=== PATIENT | female | born 1945 | race Caucasian/White ===

== ENCOUNTER 2018-01-16 20:02 | Inpatient (IN) | payer MEDICARE, OTHER ==
[~2018-01-16] VITALS: Ht 152.4 cm; Wt 35.4 kg
--- NOTE | 2018-01-16 21:30 | NUR ---
Received patient from [facility]. Patient in stable condition upon admission. No signs of pain, sob, or acute distress noted. patient is A/Ox4, Tamazight speaking, able to make needs known. Admit Dx of debility. patient was admitted to [facility] due to PNA & CHF exacerbation. Was found to have a DVT in right upper arm during hospital stay. Per day shift nurse no BP taken from RUE. Vital signs WNL upon admission. On 2L o2 via NC. Pertinent assessment completed. Patient is compliant & cooperative & is able to make her needs known even though she is unable to speak Romansh. Family at bedside during admission. per family the pt is extremely independent & cooperative. MD aware of patient admission. Med recon completed. Bed placed in low position x2 side rails up. Call light within reach. Will continue to monitor through shift.
[2018-01-16] MEDS ORDERED: LEVO25TA9 PO (22:10)
[2018-01-16] MEDS ORDERED: CARV3.122 PO (22:10)
[2018-01-16] MEDS ORDERED: TIOT18CA3 IH (22:10)
[2018-01-16] MEDS ORDERED: ASPI81TA31 PO (22:10)
[2018-01-16] MEDS ORDERED: ALBU8.5H8 IH (22:38)
[2018-01-16] MEDS ORDERED: Z GUARD REMEDY PASTE 57 GM TUBE TOP PRN (22:45)
[2018-01-16] MEDS ORDERED: ALBUTEROL SULFATE 8 GM HFA.AER.AD IH PRN (23:15)
[2018-01-17 01:02] VITALS: BP 107/65
--- NOTE | 2018-01-17 05:58 | NUR ---
Patient slept intermittently through the shift. No acute distress noted. compliant and able to make needs known. Vital signs within range. All needs attended to. patient was able to ambulate to restroom with standby assist. Safety measures implemented. Bed kept in low position, locked, alarm on at all times. Call light within reach. Will endorse to day shift RN.
[2018-01-17] MEDS ORDERED: ALBUTEROL SULFATE 2.5 MG/3 ML NEBU NEB PRN (07:15)
[2018-01-17 08:00] VITALS: BP 102/52
--- NOTE | 2018-01-17 08:30 | NUR ---
Patient noted resting in bed, no signs of distress, no complaints of pain, call light in reach, bed locked and in lowest position, x 2 bed rails, all needs met at this time
[2018-01-17] MEDS: LEVOTHYROXINE SODIUM 25 MCG TABLET PO SCH (08:59)
[2018-01-17] MEDS: CARVEDILOL 3.125 MG TABLET PO SCH ×2 (08:59→17:00)
[2018-01-17] MEDS: ASPIRIN 81 MG TAB.CHEW PO SCH (08:59)
[2018-01-17 10:44] LABS: BASOPHILS # (AUTO) 0.1 K/uL (0.0-8.0); BASOPHILS % (AUTO) 1.2 % (0.0-2.0); EOSINOPHILS # (AUTO) 0.2 K/uL (0.0-0.7); EOSINOPHILS % (AUTO) 2.1 % (0.0-7.0); HEMOGLOBIN 9.5 g/dL (10.9-14.3); LYMPHOCYTES # (AUTO) 1.8 K/uL (20.0-40.0); LYMPHOCYTES % (AUTO) 18.2 % (20.5-51.5); MEAN CORPUSCULAR HEMOGLOBIN 32.9 uug (24.7-32.8); MEAN CORPUSCULAR HGB CONC 34 g/dL (32.3-35.6); MEAN CORPUSCULAR VOLUME 96.9 fL (75.5-95.3); MONOCYTES # (AUTO) 0.7 K/uL (2.0-10.0); MONOCYTES % (AUTO) 6.9 % (0.0-11.0); NEUTROPHILS % (AUTO) 71.6 % (38.5-71.5); PLATELET COUNT (AUTO) 452 K/uL (179-408); RED BLOOD CELL COUNT(AUTO) 2.89 MIL/uL (3.63-4.92); WHITE BLOOD COUNT (AUTO) 9.8 K/uL (3.8-11.8)
[2018-01-17 10:51] LABS: CREATININE 0.9 mg/dL (0.6-1.3); POTASSIUM 3.5 mmol/L (3.5-5.1)
[2018-01-17 11:03] LABS: BILIRUBIN,TOTAL 0.4 mg/dL (0.2-1.0); MAGNESIUM 1.8 mg/dL (1.8-2.4); PHOSPHOROUS 3.4 mg/dL (2.5-4.9); TOTAL PROTEIN, SERUM 7.5 g/dL (6.4-8.2)
[2018-01-17 11:04] LABS: THYROID STIMULATING HORMONE 3.746 mIU/mL (0.358-3.740)
--- NOTE | 2018-01-17 11:38 | NUR ---
patient complaints of chest pain 103/47, 90 pulse, MD Jamison notified of findings and placed orders for stat 1) EKG 2)chest X-ray 3) B-Types Natriuretic peptide, CBC, comprehensive metabolic panel, lipid panel, magnesium, phosphate, thyroid stimulating, troponin, vit D 25-Hydroxy, B12
--- NOTE | 2018-01-17 11:45 | NUR ---
EKG results as follows 1) Normal Sinus Rhythm 2) nonspecific T wave abnormality 3)abnormal ECG
--- NOTE | 2018-01-17 19:30 | NUR ---
Received patient from day shift nurse. patient currently lying in bed comfortably. A/O x4, Lao speaking, but able to make needs known. No signs of sob or acute distress. Pertinent assessment completed. On 2L o2 via NC. HOB elevated. Bed in low position x2 side rails up. Encouraged patient to use the call light when needing to use the restroom for safety, since she is able to ambulate independently. Vital signs within range at start of shift. Per day shift nurse patient had chest pain this AM. NNO from MD. Patient states she has a little pain when breathing. MD aware. NNO. Call light within reach. Will continue to monitor through shift.
[2018-01-17 20:26] VITALS: BP 108/69
[2018-01-17] MEDS ORDERED: ACETAMINOPHEN 650 MG/20.3 ML LIQUID UDC PO PRN (23:30)
[2018-01-18] MEDS: TRAMADOL HCL 50 MG TABLET PO PRN ×2 (00:22→22:06)
--- NOTE | 2018-01-18 06:02 | NUR ---
Patient slept intermittently through shift. No acute distress noted. All needs attended to. Complained of left chest/rib pain. Medications administered per MD order. Was able to sleep after pain med given. Patient compliant and cooperative. Able to ambulate to restroom with standby assist. safety measures implemented. Bed placed in low position, locked. Call light within reach. Will endorse to day shift nurse.
[2018-01-18 08:00] VITALS: BP 97/46
[2018-01-18] MEDS: ASPIRIN 81 MG TAB.CHEW PO SCH (08:49)
[2018-01-18] MEDS: LEVOTHYROXINE SODIUM 25 MCG TABLET PO SCH (08:50)
[2018-01-18] MEDS: CARVEDILOL 3.125 MG TABLET PO SCH ×2 (08:50→17:00)
--- NOTE | 2018-01-18 11:24 | NUR ---
CALLED BARRIE, TO LET HER KNOW, WE HAVE A VSE. I CALLED DR OJEDA, HE WILL BE HERE AT 1500 TO DO IT. BARRIE SAID SHE WILL GET IN TOUCH WITH MINERVA, HEAD OF HER DEPT. TO LET HER KNOW IF SHE CAN'T SOMEONE ELSE CAN'T DO IT, SHE WOULD BE HAPPY TO DO IT. VSE SCHEDULE TO BE DONE AT 1500 TODAY.
--- NOTE | 2018-01-18 11:25 | NUR ---
Patient noted sitting up in bed, denies pain at this time, no signs of distress noted, call light in reach, bed locked and in lowest position, x 2 bed rails, bed alarm in place, all needs met at this time
--- NOTE | 2018-01-18 11:28 | NUR ---
I'M SORRY, I MEANT IF SHE WILL BE HAPPY TO DO VSE, IF NO ONE ELSE CAN.
--- NOTE | 2018-01-18 13:33 | NUR ---
INTERDISCIPLINARY TEAM CONFERENCE
[2018-01-18 19:30] VITALS: BP 110/63
--- NOTE | 2018-01-18 19:30 | NUR ---
Received patient from day shift nurse. Patient is currently lying in bed comfortably with no signs of pain, sob, or acute distress. Family currently at bedside. Pertinent assessment completed. Vital signs WNL. Bed in low position x2 side rails up. Patient is independent and able to ambulate on her own. Encouraged patient to use call light when needing to use restroom for safety. Will continue to monitor through shift.
--- NOTE | 2018-01-19 05:59 | NUR ---
No acute distress noted during shift. Patient was able to sleep after pain med. Assisted patient to restroom. Encouraged patient to use call light. Safety measures implemented. Bed kept in low position, locked, x2 side rails up. Will endorse to day shift RN.
[2018-01-19 07:30] VITALS: BP 103/55
--- NOTE | 2018-01-19 07:58 | NUR ---
Patient noted ambulating with OT to the gym, no complaints of pain at this time, no signs of distress, call light in reach, bed locked and in lowest position, x 2 bed rails, bed alarm in place
[2018-01-19] MEDS: LEVOTHYROXINE SODIUM 25 MCG TABLET PO SCH (08:51)
[2018-01-19] MEDS: ASPIRIN 81 MG TAB.CHEW PO SCH (08:51)
[2018-01-19] MEDS: CARVEDILOL 3.125 MG TABLET PO SCH ×2 (08:51→17:00)
[2018-01-19] MEDS: TRAMADOL HCL 50 MG TABLET PO PRN ×2 (16:22→23:14)
[2018-01-19 19:46] VITALS: BP 96/46
--- NOTE | 2018-01-19 19:50 | NUR ---
Pt sleeping comfortably in bed. Easily aroused to name. AAO X4, Latvian speaking. Able to make needs known. No acute distress noted. On 2L O2 via NC, tolerating well. No c/o pain or discomfort but c/o pain on the rib area only when coughing. Education for splinting provided. Will encourage. Safety measures maintained. Call light and personal belongings within reach. Will continue to monitor.
--- NOTE | 2018-01-20 05:55 | NUR ---
Pt slept intermittently at night. Meds given per MD's order. Pt coughing productively with thin and clear sputum. Crackles noted during assessment. Splinting when coughing encouraged and deep breathing techniques education provided. Assisted to the bathroom as needed. Had small BM. All needs attended to promptly. Will endorse to day shift RN. Continue to monitor.
[2018-01-20 07:52] VITALS: BP 96/57
--- NOTE | 2018-01-20 08:24 | NUR ---
Received patient awake, verbally responsive, not in any form of acute distress. She denies any pain or discomfort at this time. Call light placed within reach. Reminded to use call light when in need of assistance with verbalized understanding.
[2018-01-20] MEDS: CARVEDILOL 3.125 MG TABLET PO SCH ×2 (09:00→17:00)
[2018-01-20] MEDS: ASPIRIN 81 MG TAB.CHEW PO SCH (09:07)
[2018-01-20] MEDS: LEVOTHYROXINE SODIUM 25 MCG TABLET PO SCH (09:07)
[2018-01-20 19:30] VITALS: BP 103/61
--- NOTE | 2018-01-20 19:45 | NUR ---
Pt resting in bed. Family at bedside. No acute distress noted. On 2L O2 via NC, tolerating well. No c/o pain or discomfort at this time. Safety measures maintained. Bed alarm on. Call light and personal belongings within reach. Will continue to monitor.
[2018-01-20] MEDS ORDERED: MAG HYDROX/AL HYDROX/SIMETH 30 ML LIQUID UDC PO PRN (21:30)
[2018-01-20] MEDS ORDERED: SIMETHICONE 80 MG TAB.CHEW PO PRN (21:30)
--- NOTE | 2018-01-20 21:30 | NUR ---
Pt c/o gas and pain on the abdomen area. Dr. Jamison doing rounds and seen pt. New order for Mylanta and Simethicone. Will f/u with the orders.
[2018-01-20] MEDS: TRAMADOL HCL 50 MG TABLET PO PRN (21:53)
[2018-01-21 07:49] LABS: BASOPHILS # (AUTO) 0.1 K/uL (0.0-8.0); EOSINOPHILS # (AUTO) 0.2 K/uL (0.0-0.7); EOSINOPHILS % (AUTO) 3.4 % (0.0-7.0); HEMATOCRIT 29.2 % (31.2-41.9); HEMOGLOBIN 9.8 g/dL (10.9-14.3); LYMPHOCYTES # (AUTO) 1.9 K/uL (20.0-40.0); LYMPHOCYTES % (AUTO) 32.4 % (20.5-51.5); MEAN CORPUSCULAR HEMOGLOBIN 32.9 uug (24.7-32.8); MEAN CORPUSCULAR HGB CONC 34 g/dL (32.3-35.6); MEAN CORPUSCULAR VOLUME 98.3 fL (75.5-95.3); MONOCYTES # (AUTO) 0.8 K/uL (2.0-10.0); NEUTROPHILS # (AUTO) 2.9 K/uL (1.8-8.9); NEUTROPHILS % (AUTO) 49.2 % (38.5-71.5); PLATELET COUNT (AUTO) 384 K/uL (179-408); RED BLOOD CELL COUNT(AUTO) 2.97 MIL/uL (3.63-4.92); WHITE BLOOD COUNT (AUTO) 5.9 K/uL (3.8-11.8)
[2018-01-21 08:00] VITALS: BP 100/44
--- NOTE | 2018-01-21 08:00 | NUR ---
Received patient awake, verbally responsive, not in any form of acute distress. She denies any pain or discomfort at this time. Call light placed within reach. Reminded to use call light when in need of assistance with verbalized understanding. Assisted to her needs.
[2018-01-21 08:07] LABS: BILIRUBIN,TOTAL 0.3 mg/dL (0.2-1.0); CREATININE 0.7 mg/dL (0.6-1.3); PHOSPHOROUS 3.7 mg/dL (2.5-4.9); POTASSIUM 3.7 mmol/L (3.5-5.1); TOTAL PROTEIN, SERUM 7.8 g/dL (6.4-8.2)
[2018-01-21] MEDS: LEVOTHYROXINE SODIUM 25 MCG TABLET PO SCH (08:52)
[2018-01-21] MEDS: ASPIRIN 81 MG TAB.CHEW PO SCH (08:52)
[2018-01-21] MEDS: CARVEDILOL 3.125 MG TABLET PO SCH ×2 (08:56→17:00)
--- NOTE | 2018-01-21 19:00 | NUR ---
Patient kept coughing with whitish clear phlegm. Crackles and tight airway noted on auscultation. Called RT for breathing treatment. Notified Dr. Jamison and ordered Robitussin with codein 10ml PO Q6hrs PRN.
--- NOTE | 2018-01-21 19:40 | NUR ---
Received patient on bed, low sung's position, noted persistent coughing with clear discharges. Auscultated lungs, with crackles noted. MD made aware. New order of Robitussin 10ml PO Q6H PRN given. Pain noted 5/10 on rib area. Vital signs taken, no acute respiratory distress noted. 100% O2 sat on 2LPM via NC. Persistent assessment done. Call light in reach. Will monitor the patient.
[2018-01-21 20:09] VITALS: BP 103/44
[2018-01-21] MEDS ORDERED: IPRATROPIUM BROMIDE 0.5 MG/2.5 ML NEBU NEB PRN (22:00)
[2018-01-21] MEDS: TRAMADOL HCL 50 MG TABLET PO PRN (22:11)
[2018-01-22] MEDS: GUAIFENESIN/CODEINE 5 ML LIQUID UDC PO PRN ×3 (03:22→20:25)
[2018-01-22] MEDS: ALBUTEROL SULFATE 2.5 MG/3 ML NEBU NEB PRN ×2 (03:45→08:57)
--- NOTE | 2018-01-22 05:42 | NUR ---
Patient slept after pain med given. Woke up at 0310, coughing noted again but no signs of any acute distress. Called RT and breathing treatment given to the pt. Denies of any pain. All needs attended to. Kept clean dry and comfortable. Linens and bed sheets changed per pt's request. Call light in reach. Will monitor the pt.
[2018-01-22 07:12] VITALS: BP 94/49
[2018-01-22] MEDS: LEVOTHYROXINE SODIUM 25 MCG TABLET PO SCH (08:14)
[2018-01-22] MEDS: ASPIRIN 81 MG TAB.CHEW PO SCH (08:14)
--- NOTE | 2018-01-22 09:49 | NUR ---
Patient noted sitting up on the side of the bed, denies pain at this time, no signs of distress, call light in reach, bed locked and in lowest position, x [address], bed alarm in place
--- NOTE | 2018-01-22 19:30 | NUR ---
Received patient from day shift nurse. Patient is A/O x4, French speaking, able to make needs known. Currently sitting on chair at bedside. Denies chest pain, no sob noted, or acute distress. patient noted with coughing & flem at start of shift. Will administer cough medication as ordered per MD & continue to monitor. Pertinent assessment completed. Currently on o2 2L via NC. Vitals within range. Room checked for safety at start of shift. Bed placed in low position. Encouraged patient to use call light. Will continue to monitor through shift.
[2018-01-22 20:18] VITALS: BP 92/64
--- NOTE | 2018-01-23 05:41 | NUR ---
Patient stable through shift. No acute distress noted. Slept well through the night. Some coughing through the night, relived with Robitussin. All needs attended to. Meds administered as ordered per MD. Safety measures implemented. Call light within reach. Will endorse to day shift nurse.
[2018-01-23 07:25] VITALS: BP 95/45
[2018-01-23] MEDS: ASPIRIN 81 MG TAB.CHEW PO SCH (08:18)
[2018-01-23] MEDS: LEVOTHYROXINE SODIUM 25 MCG TABLET PO SCH (08:18)
[2018-01-23] MEDS: GUAIFENESIN/CODEINE 5 ML LIQUID UDC PO PRN ×2 (09:26→20:08)
--- NOTE | 2018-01-23 10:12 | NUR ---
SBAR report received, board updated. Pt assessed, denies pain and no acute distress. Cough present. PRN medication administered with routine medications. Pt compliant with plan of care. Able to make needs known. Bed in locked and lowest position with side rails up x2. Call light within reach. Will continue to monitor.
--- NOTE | 2018-01-23 17:29 | NUR ---
All safety and comfort measures met. No changes to Pt status during this shift. Pt sitting comfortably eating dinner. Denies pain and SOB. Call light within reach. Will continue to monitor.
[2018-01-23] MEDS: ACETAMINOPHEN 325 MG TABLET PO PRN (18:28)
--- NOTE | 2018-01-23 19:30 | NUR ---
Received patient from day shift nurse. Patient currently stable at start of shift with no acute distress noted. Family at bedside. Pertinent assessment completed. patient still noted with coughing. will monitor cough and administer medicine per MD order. Vital signs WNL. BP at 91/62, will monitor BP. patient is independent, able to ambulate & make needs known. Bed placed in low position. Call light within reach of pt. Will continue to monitor through shift.
[2018-01-23 20:44] VITALS: BP 91/62
[2018-01-24] MEDS ORDERED: GUAIFENESIN/CODEINE 5 ML LIQUID UDC ONE (05:56)
[2018-01-24] MEDS: GUAIFENESIN/CODEINE 5 ML LIQUID UDC PO PRN ×2 (06:00→21:19)
--- NOTE | 2018-01-24 06:11 | NUR ---
Patient stable through shift. no acute distress noted. slept intermittently. Still noted with cough during shift. Administered cough med as ordered per MD. all needs attended to promptly. Encouraged patient to hydrate & drink a lot of fluids. Offered patient snacks during shift. safety measures implemented. call light within reach. Will endorse to day shift nurse.
[2018-01-24 07:10] LABS: CREATININE 0.8 mg/dL (0.6-1.3); PHOSPHOROUS 3.8 mg/dL (2.5-4.9); POTASSIUM 4.2 mmol/L (3.5-5.1)
[2018-01-24 07:47] LABS: BASOPHILS # (AUTO) 0.1 K/uL (0.0-8.0); BASOPHILS % (AUTO) 1.3 % (0.0-2.0); EOSINOPHILS # (AUTO) 0.3 K/uL (0.0-0.7); EOSINOPHILS % (AUTO) 6.9 % (0.0-7.0); HEMATOCRIT 31.8 % (31.2-41.9); HEMOGLOBIN 10.6 g/dL (10.9-14.3); LYMPHOCYTES # (AUTO) 1.9 K/uL (20.0-40.0); LYMPHOCYTES % (AUTO) 40.2 % (20.5-51.5); MEAN CORPUSCULAR HEMOGLOBIN 32.8 uug (24.7-32.8); MEAN CORPUSCULAR HGB CONC 33 g/dL (32.3-35.6); MEAN CORPUSCULAR VOLUME 98.3 fL (75.5-95.3); MONOCYTES # (AUTO) 0.6 K/uL (2.0-10.0); MONOCYTES % (AUTO) 12.3 % (0.0-11.0); NEUTROPHILS # (AUTO) 1.9 K/uL (1.8-8.9); NEUTROPHILS % (AUTO) 39.3 % (38.5-71.5); PLATELET COUNT (AUTO) 327 K/uL (179-408); RED BLOOD CELL COUNT(AUTO) 3.24 MIL/uL (3.63-4.92); WHITE BLOOD COUNT (AUTO) 4.8 K/uL (3.8-11.8)
[2018-01-24 07:57] VITALS: BP 105/55
[2018-01-24] MEDS: ASPIRIN 81 MG TAB.CHEW PO SCH (08:58)
[2018-01-24] MEDS: LEVOTHYROXINE SODIUM 25 MCG TABLET PO SCH (08:58)
[2018-01-24 20:00] VITALS: BP 112/57
--- NOTE | 2018-01-24 20:00 | NUR ---
Patient awake, alert and oriented x3. Able to make needs known. No signs/symptoms of distress noted. On O2 2LPM NC, no SOB noted. Denies pain but complained of cough, PRN cough meds given. Ambulates to the bathroom with standby assistance. Safety and fall precautions observed and maintained. Call light placed within reach. All needs attended.
[2018-01-25] MEDS: ACETAMINOPHEN 325 MG TABLET PO PRN (02:43)
--- NOTE | 2018-01-25 06:00 | NUR ---
Patient slept comfortably throughout the night. Complained of mild generalized pain, tylenol PRN given. Relief was noted. No SOB. Kept clean, dry and comfortable. Call light within reach. All needs attended.
[2018-01-25] MEDS: LEVOTHYROXINE SODIUM 25 MCG TABLET PO SCH (08:38)
[2018-01-25] MEDS: ASPIRIN 81 MG TAB.CHEW PO SCH (08:38)
[2018-01-25] MEDS: GUAIFENESIN/CODEINE 5 ML LIQUID UDC PO PRN ×2 (10:26→20:12)
--- NOTE | 2018-01-25 15:01 | NUR ---
INTERDISCIPLINARY TEAM CONFERENCE
--- NOTE | 2018-01-25 19:30 | NUR ---
Received patient from day shift nurse. patient currently stable with no signs of pain, sob, or acute distress. Pertinent assessment completed. Patient noted with coughing. Asking for cough medicine at start of shift. Will administer per MD order. Vital signs within range. Bed in the low position & locked. Call light within reach. Will continue to monitor patient through shift.
[2018-01-25 20:49] VITALS: BP 106/56
--- NOTE | 2018-01-26 05:32 | NUR ---
Patient stable through shift. All needs attended to promptly. Meds administered as ordered per MD. Patient was able to sleep well through the shift. Safety measures implemented. Call light within reach. Will endorse to day shift nurse.
--- NOTE | 2018-01-26 08:00 | NUR ---
Received patient awake, alert x4. On O2 at 2lpm. Not in any distress. Denies any pain. For possible discharge today.
[2018-01-26 08:48] VITALS: BP 98/49
--- NOTE | 2018-01-26 09:00 | NUR ---
Patient coughing, non-productive no S/S of distress. No SOB. PRN Robitussin given
[2018-01-26] MEDS: LEVOTHYROXINE SODIUM 25 MCG TABLET PO SCH (09:44)
[2018-01-26] MEDS: ASPIRIN 81 MG TAB.CHEW PO SCH (09:44)
[2018-01-26] MEDS: GUAIFENESIN/CODEINE 5 ML LIQUID UDC PO PRN (09:44)
--- NOTE | 2018-01-26 12:00 | NUR ---
On room air, sating well at 96%-99%. No SOB or chest pains. With niece at bedside. Instructions for follow-up given top niece. Encouraged use of incentive spirometry and deep breathing exercises.
--- NOTE | 2018-01-26 15:00 | NUR ---
On room air sating well at 96%-98%. Routine discharge care don.e Discharge medication reviewed with Nephew. Discharge to home with home health.
== END 2018-01-26 15:30 | disposition home health service (06) | DRG 947 ==
PROVIDERS: ADMIT Physical Medicine & Rehabilitation Pain Medicine; ATTEND Physical Medicine & Rehabilitation Pain Medicine
DX: R53.81 Other malaise (principal); E43 Unspecified severe protein-calorie malnutrition; D68.59 Other primary thrombophilia; I27.20 Pulmonary hypertension, unspecified; J84.112 Idiopathic pulmonary fibrosis; I11.0 Hypertensive heart disease with heart failure; I50.32 Chronic diastolic (congestive) heart failure; Z68.1 Body mass index [BMI] 19.9 or less, adult; J20.9 Acute bronchitis, unspecified; E03.9 Hypothyroidism, unspecified; D50.9 Iron deficiency anemia, unspecified; I34.0 Nonrheumatic mitral (valve) insufficiency; I70.0 Atherosclerosis of aorta; Z86.718 Personal history of other venous thrombosis and embolism; K25.9 Gastric ulcer, unspecified as acute or chronic, without hemorrhage or perforation; K29.50 Unspecified chronic gastritis without bleeding; M51.37 Other intervertebral disc degeneration, lumbosacral region; N85.4 Malposition of uterus; R62.7 Adult failure to thrive
CPT/HCPCS: 36415; 70030-TC; 71045; 74230; 82306; 83735; 84100; 84443; 85025; 92526; 92610; 92611; 93005; 94640; 97110; 97112; 97116; 97530; 97535; A4663; J3590